=== PATIENT | female | born 1980 | race Caucasian/White ===

== ENCOUNTER 2017-08-07 14:48 | Emergency (ER) | payer BC, OTHER ==
[~2017-08-07] VITALS: Ht 165.1 cm; Wt 78.0 kg
[~2017-08-07 14:48] MED LIST: LORT7.5T3 PO; Z.0.BCPILL PO
[2017-08-07 14:54] VITALS: BP 105/74; PULSE 96; RESP 16; TEMP 98.7; O2SAT 97
[2017-08-07 15:31] LABS: BASOPHIL # 0.2 TH/MM3 (0-0.2); BASOPHIL % 2.6 % (0.0-2.0); EOSINOPHIL # 0.2 TH/MM3 (0-0.4); EOSINOPHIL % 2.7 % (0.0-4.0); HEMATOCRIT 41.7 % (35.0-46.0); HEMOGLOBIN 14.3 GM/DL (11.6-15.3); LYMPH % 31.4 % (9.0-44.0); LYMPHOCYTE # 1.9 TH/MM3 (1.0-4.8); MEAN CELL VOLUME 84.3 FL (80.0-100.0); MEAN CORPUSCULAR HEMOGLOBIN 28.9 PG (27.0-34.0); MEAN CORPUSCULAR HGB CONC 34.3 % (32.0-36.0); MEAN PLATELET VOLUME 8.5 FL (7.0-11.0); MONO % 9.5 % (0.0-8.0); MONOCYTE # 0.6 TH/MM3 (0-0.9); NEUT % 53.8 % (16.0-70.0); PLATELET COUNT 348 TH/MM3 (150-450); RED BLOOD COUNT 4.95 MIL/MM3 (4.00-5.30); RED CELL DISTRIBUTION WIDTH 13.3 % (11.6-17.2); WHITE BLOOD COUNT 5.9 TH/MM3 (4.0-11.0)
[2017-08-07 15:39] LABS: CHLORIDE 107 MEQ/L (98-107); SODIUM (NA) 137 MEQ/L (136-145)
--- NOTE | 2017-08-07 15:41 | PD ---
HPI Chief Complaint: Chest Pain Time Seen by Provider: 15:01 Travel History International Travel<30 days: No Contact w/Intl Traveler<30days: No Traveled to known affect area: No History of Present Illness HPI 37 years old female complains of left-sided neck pain, left shoulder pain, left upper chest pain, upper back pain. Patient states that she started having aching upper back pain 3 days ago. Patient states that the pain started moving down the left side of the chest and left shoulder 2 days ago. Patient started having pain radiates to left-sided neck today. Patient states that the pain aching pain. Patient denies any coughing congestion fever chills. Patient stated the pain is worse with movement. Patient denies any direct injury to the neck or shoulder or chest area. Patient denies any history of CAD. Patient denies history hypertension, diabetes, hyperlipidemia. Patient is a smoker. Patient denies family history of heart disease. PFSH Past Medical History Cancer: No Cardiovascular Problems: No Diabetes: No Endocrine: No Gastrointestinal Disorders: No Genitourinary: No Hepatitis: No Hiatal Hernia: No Hypertension: No Immune Disorder: No Medical other: Yes (R SHOULDER PAIN) Musculoskeletal: No Neurologic: No Psychiatric: No Reproductive: No Respiratory: Yes (CHILDHOOD ASTHMA) Thyroid Disease: No Influenza Vaccination: No ?: Not LMP: 07/16/17 Past Surgical History AICD: No Joint Replacement: No Pacemaker: No Other Surgery: Yes Social History Alcohol Use: No Tobacco Use: Yes (03/06 PPD) Substance Use: No Allergies-Medications (Allergen,Severity, Reaction): Coded Allergies: No Known Allergies (Unverified Adverse Reaction, Unknown, 08/07/17) Reported Meds & Prescriptions Reported Meds & Active Scripts Active No Active Prescriptions or Reported Medications Review of Systems General / Constitutional: No: Fever Eyes: No: Visual changes HENT: Positive: Neck Pain, No: Headaches Cardiovascular: Positive: Chest Pain or Discomfort Respiratory: No: Shortness of Breath Gastrointestinal: No: Abdominal Pain Genitourinary: No: Dysuria Musculoskeletal: No: Pain Skin: No Rash Neurologic: No: Weakness Psychiatric: No: Depression Endocrine: No: Polydipsia Hematologic/Lymphatic: No: Easy Bruising Physical Exam Narrative GENERAL: Well-nourished, well-developed patient. SKIN: Focused skin assessment warm/dry. HEAD: Normocephalic. EYES: No scleral icterus. No injection or drainage. NECK: Supple, trachea midline. No JVD or lymphadenopathy. Patient has mild tenderness on palpation left paraspinal area cervical spine. No midline tenderness. Patient has mild tenderness on palpation of left shoulder pad area. No shoulder joint tenderness. Full range of motion of left shoulder. No redness no heat noted. No rash noted. CARDIOVASCULAR: Regular rate and rhythm without murmurs, gallops, or rubs. RESPIRATORY: Breath sounds equal bilaterally. No accessory muscle use. GASTROINTESTINAL: Abdomen soft, non-tender, nondistended. MUSCULOSKELETAL: No cyanosis, or edema. BACK: Nontender without obvious deformity. No CVA tenderness. Neurologic exam normal. Data Data Last Documented VS Vital Signs Date Time Temp Pulse Resp B/P (MAP) Pulse Ox O2 Delivery O2 Flow Rate FiO2 08/07/17 14:55 96 16 08/07/17 14:54 98.7 105/74 (84) 97 Orders Orders Electrocardiogram (08/07/17 14:54) Complete Blood Count With Diff (08/07/17 15:15) Basic Metabolic Panel (Bmp) (08/07/17 15:15) Creatine Kinase (Cpk) (08/07/17 15:15) Troponin I (08/07/17 15:15) Prothrombin Time / Inr (Pt) (08/07/17 15:15) Act Partial Throm Time (Ptt) (08/07/17 15:15) Chest, Single Ap (08/07/17 15:15) Spine, Cervical - Ltd (Ap&Lat) (08/07/17 15:15) Iv Access Insert/Monitor (08/07/17 15:15) Ecg Monitoring (08/07/17 15:15) Oximetry (08/07/17 15:15) Labs Laboratory Tests Test 08/07/17 15:00 White Blood Count 5.9 TH/MM3 Red Blood Count 4.95 MIL/MM3 Hemoglobin 14.3 GM/DL Hematocrit 41.7 % Mean Corpuscular Volume 84.3 FL Mean Corpuscular Hemoglobin 28.9 PG Mean Corpuscular Hemoglobin Concent 34.3 % Red Cell Distribution Width 13.3 % Platelet Count 348 TH/MM3 Mean Platelet Volume 8.5 FL Neutrophils (%) (Auto) 53.8 % Lymphocytes (%) (Auto) 31.4 % Monocytes (%) (Auto) 9.5 % Eosinophils (%) (Auto) 2.7 % Basophils (%) (Auto) 2.6 % Neutrophils # (Auto) 3.0 TH/MM3 Lymphocytes # (Auto) 1.9 TH/MM3 Monocytes # (Auto) 0.6 TH/MM3 Eosinophils # (Auto) 0.2 TH/MM3 Basophils # (Auto) 0.2 TH/MM3 CBC Comment DIFF FINAL Differential Comment Prothrombin Time 12.0 SEC Prothromb Time International Ratio 1.2 RATIO Activated Partial Thromboplast Time 28.1 SEC Blood Urea Nitrogen 12 MG/DL Creatinine 0.66 MG/DL Random Glucose 88 MG/DL Calcium Level 8.8 MG/DL Sodium Level 137 MEQ/L Potassium Level 5.6 MEQ/L Chloride Level 107 MEQ/L Carbon Dioxide Level 22.9 MEQ/L Anion Gap 7 MEQ/L Estimat Glomerular Filtration Rate 101 ML/MIN Total Creatine Kinase 121 U/L Troponin I LESS THAN 0.02 NG/ML MDM Medical Decision Making Medical Screen Exam Complete: Yes Emergency Medical Condition: Yes Interpretation(s) Last Impressions Chest X-Ray 08/07/17 1515 Signed Impressions: CONCLUSION: Negative examination. Cervical Spine X-Ray 08/07/17 1515 Signed Impressions: CONCLUSION: Degenerative changes C5-6 CBC within normal limits. Potassium 5.6. Slight hemolysis noted. Cardiac enzymes are normal. Differential Diagnosis Differential diagnosis including muscular spasm, radiculopathy, angina, MN, PE, pneumothorax. Narrative Course 37 years old female with left-sided neck pain, left shoulder pad pain, left chest pain, upper back pain. Diagnosis Primary Impression: Atypical chest pain Additional Impression: Muscle spasm Patient Instructions: General Instructions Additional Instructions: Take medication as needed. Moist heat to the area. Follow-up with personal physician. Return if worse. Med/Other Pt SpecificInfo: Prescription(s) given Scripts Methocarbamol (Robaxin) 750 Mg Tab 750 MG PO QID for Muscle Spasm, #40 TAB 0 Refills Prov: Woody Li MD 08/07/17 Meloxicam (Mobic) 15 Mg Tab 15 MG PO DAILY for Pain, #20 TAB 0 Refills Prov: Woody Li MD 08/07/17 Disposition: 01 DISCHARGE HOME Condition: Stable Woody Li MD Aug 07, 2017 15:41
[2017-08-07 15:42] LABS: BICARBONATE 22.9 MEQ/L (21.0-32.0); CALCIUM 8.8 MG/DL (8.5-10.1); GLUCOSE,RANDOM 88 MG/DL (74-106)
[2017-08-07 15:43] LABS: BLOOD UREA NITROGEN 12 MG/DL (7-18)
[2017-08-07 15:46] LABS: CREATININE 0.66 MG/DL (0.50-1.00); GLOMERULAR FILTRATION RATE 101 ML/MIN (>89)
[2017-08-07 15:50] LABS: TROPONIN I LESS THAN 0.02 NG/ML (0.02-0.05)
[2017-08-07 15:54] LABS: INTERNATIONAL NORMALIZED RATIO 1.2 RATIO
--- NOTE | 2017-08-07 16:06 | RADRPT ---
EXAM DATE: 08/07/2017 4:02 PM EDT AGE/SEX: 37 years / Female INDICATIONS: Neck pain for 2 days with no known injury CLINICAL DATA: This is the patient's initial encounter. Patient reports that signs and symptoms have been present for 2 days and indicates a pain score of 3/10. MEDICAL/SURGICAL HISTORY: None. None. COMPARISON: No prior [place] exams available for comparison. FINDINGS: Alignment is normal. There is no evidence of fracture or destructive change. There is disc space narr owing at C5-6 with small endplate osteophytes. Good preservation of disc height at other levels. No a bnormal prevertebral swelling. CONCLUSION: Degenerative changes C5-6 Electronically signed by: Daron Biggs MD 08/07/2017 4:05 PM EDT
--- NOTE | 2017-08-07 16:08 | RADRPT ---
EXAM DATE: 08/07/2017 4:01 PM EDT AGE/SEX: 37 years / Female INDICATIONS: Chest pain for 2 days CLINICAL DATA: This is the patient's initial encounter. Patient reports that signs and symptoms have been present for 2 days and indicates a pain score of 4/10. MEDICAL/SURGICAL HISTORY: None. None. COMPARISON: No prior [facility] exams available for comparison. FINDINGS: A single AP view of the chest demonstrates the lungs to be symmetrically aerated without evidence of mass, infiltrate or effusion. The cardiomediastinal contours are unremarkable. Osseous structures a re intact. CONCLUSION: Negative examination. Electronically signed by: Daron Biggs MD 08/07/2017 4:06 PM EDT
[2017-08-07] MEDS ORDERED: ROBA750T PO (16:29)
[2017-08-07] MEDS ORDERED: MOBI15TA PO (16:29)
--- NOTE | 2017-08-08 15:11 | EKG ---
Date Performed: 08/07/2017 Time Performed: 14:54:30 PTAGE: 37 years EKG: Sinus rhythm NORMAL ECG NO PREVIOUS TRACING DOCTOR: Aliza Dumont Interpretating Date/Time 08/08/2017 15:10:07
== END 2017-08-07 16:43 | disposition home or self-care (01) ==
LOC: PHED 14:48
DX: R07.89 Other chest pain (principal); M62.838 Other muscle spasm; F17.200 Nicotine dependence, unspecified, uncomplicated
CPT/HCPCS: 71045; 72040; 80048; 82550; 84484; 85025; 85610; 85730; 93005; 99285